=== PATIENT | male | born 1985 | race Caucasian/White ===

== ENCOUNTER 2017-11-19 10:59 | Emergency (ER) | payer BC, SELFPAY ==
--- NOTE | 2017-11-19 11:51 | RAD REPORT ---
EXAM DESCRIPTION: RAD - Hand Left 3 View - 11/19/2017 11:40 am CLINICAL HISTORY: DEFORMITY COMPARISON: No comparisons FINDINGS: Tuft fracture is present involving the fourth finger. No dislocation.
--- NOTE | 2017-11-19 11:55 | EDPHYS ---
Physician Documentation [facility] Name: Rohit Ramon Age: 32 yrs Sex: Male : 1985 Arrival Date: 11/19/2017 Time: 11:02 Bed 16 Private MD: ED Physician Reggie Tinajero HPI: 11/19 11:19 This 32 yrs old Male presents to ER via Ambulatory with complaints of Finger ps1 Pain. 11:19 The patient or guardian reports deformity, injury, pain. The complaints affect the DIP ps1 of left ring finger. Context: The problem was sustained at work. Onset: The symptoms/episode began/occurred 3 month(s) ago. Associated signs and symptoms: Pertinent positives: pain and numbness. FB sensation on palmar aspect of distal 4th phalanx. Severity of symptoms: At their worst the symptoms were moderate, in the emergency department the symptoms are unchanged. workplace injury. Paitient still has pain and FB sensation. Possible fragments from fracture. . Historical: - Allergies: 11:04 No Known Allergies; la1 - PMHx: 11:04 mood disorder; la1 - Immunization history:: Adult Immunizations up to date. - Social history:: Smoking status: Patient uses tobacco products, smokes one-half pack cigarettes per day. - Ebola Screening: : No symptoms or risks identified at this time. ROS: 11:19 Constitutional: Negative for fever, chills, and weight loss, Eyes: Negative for injury, ps1 pain, redness, and discharge, Cardiovascular: Negative for chest pain, palpitations, and edema, Respiratory: Negative for shortness of breath, cough, wheezing, and pleuritic chest pain, Abdomen/GI: Negative for abdominal pain, nausea, vomiting, diarrhea, and constipation, Skin: Negative for injury, rash, and discoloration. 11:19 MS/extremity: Positive for pain, tingling, of the palmar aspect of distal phalanx of left ring finger. Exam: 11:19 Constitutional: This is a well developed, well nourished patient who is awake, alert, ps1 and in no acute distress. Head/Face: Normocephalic, atraumatic. Eyes: Pupils equal round and reactive to light, extra-ocular motions intact. Lids and lashes normal. Conjunctiva and sclera are non-icteric and not injected. Chest/axilla: Normal chest wall appearance and motion. Nontender with no deformity. No lesions are appreciated. Cardiovascular: Regular rate and rhythm. No gallops, murmurs, or rubs. Normal PMI, no JVD. No pulse deficits. Respiratory: Lungs have equal breath sounds bilaterally, clear to auscultation and percussion. No rales, rhonchi or wheezes noted. No increased work of breathing, no retractions or nasal flaring. Skin: Warm, dry with normal turgor. Normal color with no rashes, no lesions, and no evidence of cellulitis. 11:19 Musculoskeletal/extremity: Extremities: grossly normal except: noted in the palmar aspect of distal phalanx of left ring finger: erythema, pain. Vital Signs: 11:04 BP 132 / 74; Pulse 68; Resp 16; Temp 98.4; Pulse Ox 98% on R/A; Weight 117.93 kg; la1 Height 6 ft. 2 in. (187.96 cm); 11:04 Body Mass Index 33.38 (117.93 kg, 187.96 cm) la1 MDM: 11:16 Patient medically screened. ps1 11:51 Data reviewed: vital signs, nurses notes, radiologic studies, plain films, and as a ps1 result, I will discharge patient. Counseling: I had a detailed discussion with the patient and/or guardian regarding: the historical points, exam findings, and any diagnostic results supporting the discharge/admit diagnosis, the need for outpatient follow up, for definitive care, a hand specialist. Special discussion: Based on the history and exam findings, there is no indication for further emergent testing or inpatient evaluation. ED course: patient has comminuted distal phalanx fracture of left 4th digit with multiple fracture fragments. Referred to hand specialist. . 11/19 11:19 Order name: Hand Left 3 View XRAY; Complete Time: 11:56 ps1 Administered Medications: No medications were administered Disposition: 11/19/17 11:55 Discharged to Home. Impression: comminuted distal phalanx fracture left fourth digit. . - Condition is Stable. - Discharge Instructions: Finger Fracture, [id number]. - Prescriptions for Tramadol 50 mg Oral Tablet - take 1 tablet by ORAL route every 8 hours as needed; 30 tablet. - Medication Reconciliation Form, Thank You Letter, Antibiotic Education, Prescription Opioid Use form. - Follow up: Neto Dawkins MD; When: 1 week; Reason: Further diagnostic work-up, Continuance of care. - Problem is chronic. - Symptoms have worsened. Signatures: Dispatcher [employer] EDRafa Callaway, RN RN la1 Nita Beavers RN RN hb Reggie Tinajero MD MD ps1 Corrections: (The following items were deleted from the chart) 12:30 11:55 11/19/2017 11:55 Discharged to Home. Impression: comminuted distal phalanx hb fracture left fourth digit. . Condition is Stable. Forms are Medication Reconciliation Form, Thank You Letter, Antibiotic Education, Prescription Opioid Use. Follow up: Neto Dawkins; When: 1 week; Reason: Further diagnostic work-up, Continuance of care. Problem is chronic. Symptoms have worsened. ps1
--- NOTE | 2017-11-19 11:55 | ER ---
Nurse's Notes [facility] Name: Rohit Ramon Age: 32 yrs Sex: Male : 1985 Arrival Date: 11/19/2017 Time: 11:02 Bed 16 Private MD: Diagnosis: comminuted distal phalanx fracture left fourth digit. Presentation: 11/19 11:03 Presenting complaint: Patient states: I had a crush injury to my left fourth finger la1 about 10 weeks ago and its still hurting. Pt had Xrays twice since injury. Transition of care: patient was not received from another setting of care. Onset of symptoms was November 19, 2017. Risk Assessment: Do you want to hurt yourself or someone else? Patient reports no desire to harm self or others. Initial Sepsis Screen: Does the patient meet any 2 criteria? No. Patient's initial sepsis screen is negative. Does the patient have a suspected source of infection? No. Patient's initial sepsis screen is negative. Care prior to arrival: None. 11:03 Method Of Arrival: Ambulatory la1 11:03 Acuity: CARMELITA 5 la1 Historical: - Allergies: 11:04 No Known Allergies; la1 - PMHx: 11:04 mood disorder; la1 - Immunization history:: Adult Immunizations up to date. - Social history:: Smoking status: Patient uses tobacco products, smokes one-half pack cigarettes per day. - Ebola Screening: : No symptoms or risks identified at this time. Screenin:20 Abuse screen: Denies threats or abuse. Denies injuries from another. Nutritional aj1 screening: No deficits noted. Tuberculosis screening: No symptoms or risk factors identified. Assessment: 11:20 General: Appears in no apparent distress. uncomfortable, Behavior is calm, cooperative, aj1 appropriate for age. Pain: Complains of pain in dorsal aspect of distal phalanx of left ring finger and palmar aspect of distal phalanx of left ring finger Pain currently is 5 out of 10 on a pain scale. Quality of pain is described as sharp. Neuro: Level of Consciousness is awake, alert, obeys commands. Cardiovascular: Patient's skin is warm and dry. Respiratory: Airway is patent Respiratory effort is even, unlabored, Respiratory pattern is regular, symmetrical. GI: No signs and/or symptoms were reported involving the gastrointestinal system. : No signs and/or symptoms were reported regarding the genitourinary system. EENT: No signs and/or symptoms were reported regarding the EENT system. Musculoskeletal: Reports pain in dorsal aspect of distal phalanx of left ring finger and palmar aspect of distal phalanx of left ring finger Pain upon palpation of left ring finger. Vital Signs: 11:04 BP 132 / 74; Pulse 68; Resp 16; Temp 98.4; Pulse Ox 98% on R/A; Weight 117.93 kg; la1 Height 6 ft. 2 in. (187.96 cm); 11:04 Body Mass Index 33.38 (117.93 kg, 187.96 cm) la1 ED Course: 11:02 Patient arrived in ED. as 11:03 Reggie Tinajero MD is Attending Physician. ps1 11:04 Triage completed. la1 11:04 Arm band placed on left wrist. la1 11:09 Dulce Swan, RN is Primary Nurse. aj1 11:20 Patient has correct armband on for positive identification. Bed in low position. Call aj1 light in reach. Side rails up X 1. 11:20 No provider procedures requiring assistance completed. aj1 11:40 Hand Left 3 View XRAY In Process Unspecified. EDMS 11:53 Neto Dawkins MD is Referral Physician. ps1 Administered Medications: No medications were administered Outcome: 11:55 Discharge ordered by . ps1 12:30 Patient left the ED. Signatures: Dispatcher [employer] EDOK Dulce Swan RN RN aj1 Zeenat Kendrick as Rafa Chavis RN RN la1 Nita Beavers RN RN Reggie Tinajero MD MD ps1
[2017-11-19 12:34] VITALS: BP 132/74; TEMP 98.4; O2SAT 98
== END 2017-11-19 12:30 | disposition home or self-care (01) ==
LOC: ER 10:59
DX: S62.635A Displaced fracture of distal phalanx of left ring finger, initial encounter for closed fracture (principal); W23.0XXA Caught, crushed, jammed, or pinched between moving objects, initial encounter; Y93.9 Activity, unspecified; Y92.69 Other specified industrial and construction area as the place of occurrence of the external cause; Y99.0 Civilian activity done for income or pay
CPT/HCPCS: 99282

== ENCOUNTER 2020-02-18 17:39 | Emergency (ER) | payer OTHER, SELFPAY ==
--- NOTE | 2020-02-18 19:33 | EDPHYS ---
Physician Documentation [facility] Name: Rohit Ramon Age: 34 yrs Sex: Male : 1985 Arrival Date: 02/18/2020 Time: 17:41 Bed 16 Private MD: ED Physician Eric Winter HPI: 02/17 19:31 This 34 yrs old Male presents to ER via Ambulatory with complaints of Abscess.pm1 19:31 the patient presents with a swollen area of the right magaña. Description: raised. Onset: pm1 The symptoms/episode began/occurred this morning. Possible cause(s): unknown. Associated signs and symptoms: Pertinent negatives: discharge, drainage, fever. Modifying factors: the symptoms are alleviated by nothing, the symptoms are aggravated by touching. Severity of symptoms: in the emergency department the symptoms are actually worse. Patient noticed a bump on his right magaña this AM when he woke up. Throughout the day he noticed increased redness and swelling around the bump. Patient does not know what caused the bump. Historical: - Allergies: 17:47 No Known Drug Allergies; tw2 - Home Meds: 17:47 None [Active]; tw2 - PMHx: 17:47 mood disorder; tw2 - PSHx: 17:47 None; tw2 - Immunization history:: Adult Immunizations. - Social history:: Smoking status: . ROS: 19:31 Constitutional: Negative for fever, chills, and weight loss, Cardiovascular: Negative pm1 for chest pain, palpitations, and edema, Respiratory: Negative for shortness of breath, cough, wheezing, and pleuritic chest pain, MS/Extremity: Negative for injury and deformity. 19:31 Skin: Positive for abscess, swelling, of the right magaña. Exam: 19:31 Constitutional: This is a well developed, well nourished patient who is awake, alert, pm1 and in no acute distress. Head/Face: Normocephalic, atraumatic. 19:31 Back: No spinal tenderness. No costovertebral tenderness. Full range of motion. 19:31 Cardiovascular: Exam negative for acute changes, Rate: normal, Rhythm: regular, Pulses: no pulse deficits are appreciated. 19:31 Respiratory: Exam negative for acute changes, respiratory distress, shortness of breath. 19:31 Skin: Appearance: normal except for affected area, abscess, not appreciated, of the right magaña, needle aspiration to central vesicle resulted in bleeding. No purulent drainage present. Minimal surrounding cellulitis present. No fluctuance or induration, cellulitis, that is minimal, on the right magaña. 19:31 Neuro: Exam negative for acute changes, Orientation: is normal, Mentation: is normal, Motor: is normal, moves all fours. Vital Signs: 17:44 BP 141 / 92; Pulse 95; Resp 17; Temp 99(TE); Pulse Ox 99% on R/A; Weight 136.08 kg (R); tw2 Height 6 ft. 2 in. (187.96 cm); Pain 6/10; 17:44 Body Mass Index 38.52 (136.08 kg, 187.96 cm) tw2 MDM: 18:45 Patient medically screened. pm1 19:31 Data reviewed: vital signs. Counseling: I had a detailed discussion with the patient pm1 and/or guardian regarding: the historical points, exam findings, and any diagnostic results supporting the discharge/admit diagnosis, the need for outpatient follow up, to return to the emergency department if symptoms worsen or persist or if there are any questions or concerns that arise at home. Administered Medications: 19:35 Drug: Tetanus-Diphtheria Toxoid Adult 0.5 ml {Rehabilitation Therapy Technician: [employer]. Exp: ll2 05/24/2020. Lot #: [id number]. } Route: IM; Site: left deltoid; 19:47 Follow up: Response: Medication administered at discharge. ll2 Disposition: 02/18 06:55 Co-signature as Attending Physician, Eric Winter MD I agree with the assessment and edwin plan of care. Disposition: 02/18/20 19:32 Discharged to Home. Impression: Cellulitis of right lower limb. - Condition is Stable. - Discharge Instructions: Cellulitis, Adult. - Prescriptions for Bactroban 2 % Topical Ointment - Apply to affected area 1 application by TOPICAL route every 12 hours; 30 gram. Bactrim DS 800- 160 mg Oral Tablet - take 1 tablet by ORAL route every 12 hours for 10 days; 20 tablet. - Medication Reconciliation Form, Thank You Letter, Antibiotic Education, Prescription Opioid Use form. - Follow up: Emergency Department; When: As needed; Reason: Worsening of condition. Follow up: Private Physician; When: 2 - 3 days; Reason: Recheck today's complaints, Continuance of care, Re-evaluation by your physician. - Problem is new. - Symptoms have improved. Signatures: Eric Winter MD MD cha Marinas, Patrick, NP SPANISH INTERPRETER/TRANSLATOR pm1 Lara Miller, RN RN tw2 Palmira Powell RN RN ll2 Corrections: (The following items were deleted from the chart) 02/17 19:48 19:32 02/18/2020 19:32 Discharged to Home. Impression: Cellulitis of right lower limb. ll2 Condition is Stable. Forms are Medication Reconciliation Form, Thank You Letter, Antibiotic Education, Prescription Opioid Use. Follow up: Emergency Department; When: As needed; Reason: Worsening of condition. Follow up: Private Physician; When: 2 - 3 days; Reason: Recheck today's complaints, Continuance of care, Re-evaluation by your physician. Problem is new. Symptoms have improved. pm1
--- NOTE | 2020-02-18 19:33 | ER ---
Nurse's Notes [facility] Name: Rohit Ramon Age: 34 yrs Sex: Male : 1985 Arrival Date: 02/18/2020 Time: 17:41 Bed 16 Private MD: Diagnosis: Cellulitis of right lower limb Presentation: 02/17 17:44 Chief complaint: Patient states: today this morning my leg was itching, but all day it tw2 got worse and worse, there is the hot spot that is swelling and red and it feels tight all the way up to my thigh and it feels like my whole leg is on fire. Coronavirus screen: At this time, the client does not indicate any symptoms associated with coronavirus-19. Ebola Screen: Patient denies travel to an Ebola-affected area in the 21 days before illness onset. Initial Sepsis Screen: Does the patient meet any 2 criteria? HR > 90 bpm. No. Patient's initial sepsis screen is negative. Does the patient have a suspected source of infection? Yes: Skin breakdown/wound. Risk Assessment: Do you want to hurt yourself or someone else? Patient reports no desire to harm self or others. Onset of symptoms was February 18, 2020. 17:44 Method Of Arrival: Ambulatory tw2 17:44 Acuity: CARMELITA 3 tw2 Triage Assessment: 17:47 General: Appears in no apparent distress. obese, well groomed, Behavior is calm, tw2 cooperative, appropriate for age. Pain: Complains of pain in right magaña. Historical: - Allergies: 17:47 No Known Drug Allergies; tw2 - Home Meds: 17:47 None [Active]; tw2 - PMHx: 17:47 mood disorder; tw2 - PSHx: 17:47 None; tw2 - Immunization history:: Adult Immunizations. - Social history:: Smoking status: . Screenin:47 Abuse screen: Denies threats or abuse. Nutritional screening: No deficits noted. ll2 Tuberculosis screening: No symptoms or risk factors identified. Fall Risk None identified. Vital Signs: 17:44 BP 141 / 92; Pulse 95; Resp 17; Temp 99(TE); Pulse Ox 99% on R/A; Weight 136.08 kg (R); tw2 Height 6 ft. 2 in. (187.96 cm); Pain 6/10; 17:44 Body Mass Index 38.52 (136.08 kg, 187.96 cm) tw2 ED Course: 17:41 Patient arrived in ED. ag3 17:47 Triage completed. tw2 17:48 Arm band placed on. tw2 18:45 Damian Hernandez NP is PHCP. pm1 18:45 Eric Winter MD is Attending Physician. pm1 19:20 Palmira Powell, RN is Primary Nurse. ll2 19:47 Patient has correct armband on for positive identification. Call light in reach. Side ll2 rails up X 1. 19:47 No provider procedures requiring assistance completed. Patient did not have IV access ll2 during this emergency room visit. Administered Medications: 19:35 Drug: Tetanus-Diphtheria Toxoid Adult 0.5 ml {[employer] Editor: [employer]. Exp: ll2 05/24/2020. Lot #: [id number]. } Route: IM; Site: left deltoid; 19:47 Follow up: Response: Medication administered at discharge. ll2 Outcome: 19:32 Discharge ordered by . pm1 19:47 Discharged to home ambulatory. ll2 19:47 Condition: stable 19:47 Discharge instructions given to patient, Instructed on discharge instructions, follow up and referral plans. medication usage, Demonstrated understanding of instructions, follow-up care, medications, Prescriptions given X 2. 19:48 Patient left the ED. ll2 Signatures: Damian Hernandez, BRAYAN CUTTING MACHINE TENDER pm1 Lara Miller RN RN tw2 Nenita Live ag3 Palmira Powell, PRICILA RN ll2
[2020-02-18] MEDS ORDERED: TETANUS & DIPHTHERIA TOX,ADULT 0.5 ML VIAL ONE (19:51)
[2020-02-18 19:57] VITALS: BP 141/92; TEMP 99; O2SAT 99
== END 2020-02-18 19:48 | disposition home or self-care (01) ==
LOC: ER 17:39
DX: L03.115 Cellulitis of right lower limb (principal); Z23 Encounter for immunization
CPT/HCPCS: 90471; 90714; 99283

== ENCOUNTER 2020-12-31 18:55 | Emergency (ER) | payer SELFPAY ==
[2020-12-31 20:53] LABS: SARS-COV-2 RT PCR NEGATIVE (NEGATIVE)
--- NOTE | 2020-12-31 21:03 | ER ---
Nurse's Notes [facility] Name: Rohit Ramon Age: 35 yrs Sex: Male : 1985 Arrival Date: 12/31/2020 Time: 18:58 Bed 12 Private MD: Diagnosis: Acute upper respiratory infection, unspecified;Otitis media in diseases classified elsewhere, bilateral Presentation: 12/31 19:02 Chief complaint: Patient states: I have had a stuffy nose, headache and ears ringing X ld1 2 days. Coronavirus screen: Client presents with at least one sign or symptom that may indicate coronavirus-19. Standard/surgical mask placed on the client. Ebola Screen: No symptoms or risks identified at this time. Initial Sepsis Screen: Does the patient meet any 2 criteria? No. Patient's initial sepsis screen is negative. Does the patient have a suspected source of infection? No. Patient's initial sepsis screen is negative. Risk Assessment: Do you want to hurt yourself or someone else? Patient reports no desire to harm self or others. Onset of symptoms was December 29, 2020. 19:02 Method Of Arrival: Ambulatory ld1 19:02 Acuity: CARMELITA 4 ld1 Triage Assessment: 19:06 General: Appears in no apparent distress. comfortable, Behavior is calm, cooperative, ld1 appropriate for age. Pain: Denies pain. EENT: Reports nasal congestion. Neuro: Level of Consciousness is awake, alert, obeys commands, Oriented to person, place, time, situation, Appropriate for age. Cardiovascular: Capillary refill < 3 seconds Patient's skin is warm and dry. Respiratory: Airway is patent Respiratory effort is even, unlabored, Respiratory pattern is regular, symmetrical. GI: Abdomen is round non-distended. : No signs and/or symptoms were reported regarding the genitourinary system. Derm: No signs and/or symptoms reported regarding the dermatologic system. Musculoskeletal: No signs and/or symptoms reported regarding the musculoskeletal system. Historical: - Allergies: 19:06 No Known Allergies; ld1 - Home Meds: 19:06 None [Active]; ld1 - PMHx: 19:06 None; ld1 - PSHx: 19:06 Right hand surgery; ld1 - Immunization history:: Adult Immunizations not up to date, Client reports having NOT received the Covid vaccine. - Social history:: Smoking status: Patient denies any tobacco usage or history of. Patient/guardian denies using alcohol. Screenin:40 Abuse screen: Denies threats or abuse. Denies injuries from another. Nutritional ld1 screening: No deficits noted. Tuberculosis screening: No symptoms or risk factors identified. Fall Risk None identified. Assessment: 20:40 Reassessment: See triage assessment. ld1 Vital Signs: 19:02 BP 128 / 78; Pulse 81; Resp 18; Temp 98.2(TE); Pulse Ox 99% on R/A; Weight 129.27 kg; ld1 Height 6 ft. 2 in. (187.96 cm); Pain 0/10; 20:40 BP 131 / 77; Pulse 79; Resp 18; Pulse Ox 99% on R/A; ld1 19:02 Body Mass Index 36.59 (129.27 kg, 187.96 cm) ld1 ED Course: 18:58 Patient arrived in ED. as 19:05 Triage completed. ld1 19:06 Arm band placed on right wrist. ld1 20:29 Eric Meza PA is PHCP. cp 20:29 Justin Flanagan MD is Attending Physician. cp 20:40 Padmini Matson, PRICILA is Primary Nurse. ld1 20:40 Patient has correct armband on for positive identification. Bed in low position. Call ld1 light in reach. Side rails up X2. Pulse ox on. NIBP on. Door closed. Noise minimized. Warm blanket given. 20:40 No provider procedures requiring assistance completed. ld1 21:09 Patient did not have IV access during this emergency room visit. ld1 Administered Medications: No medications were administered Outcome: 21:03 Discharge ordered by . cp 21:09 Discharged to home ambulatory. ld1 21:09 Condition: stable 21:09 Discharge instructions given to patient, Instructed on discharge instructions, follow up and referral plans. medication usage, Demonstrated understanding of instructions, follow-up care, medications. 21:09 Patient left the ED. ld1 Signatures: Zeenat Kendrick Corey, PA PA cp Padmini Matson, RN RN ld1 Corrections: (The following items were deleted from the chart) 19:07 19:06 PMHx: mood disorder; ld1 ld1
--- NOTE | 2020-12-31 21:03 | EDPHYS ---
Physician Documentation [facility] Name: Rohit Ramon Age: 35 yrs Sex: Male : 1985 Arrival Date: 12/31/2020 Time: 18:58 Bed 12 Private MD: ED Physician Justin Flanagan HPI: 12/31 20:45 This 35 yrs old Male presents to ER via Ambulatory with complaints of Flu Symptoms. cp 20:45 The patient or guardian reports cough, that is intermittent. cp 20:45 Onset: The symptoms/episode began/occurred 2 day(s) ago. cp 20:45 Associated signs and symptoms: Pertinent positives: headache, nasal congestion, cp Pertinent negatives: diarrhea, fever, vomiting. Historical: - Allergies: 19:06 No Known Allergies; ld1 - Home Meds: 19:06 None [Active]; ld1 - PMHx: 19:06 None; ld1 - PSHx: 19:06 Right hand surgery; ld1 - Immunization history:: Adult Immunizations not up to date, Client reports having NOT received the Covid vaccine. - Social history:: Smoking status: Patient denies any tobacco usage or history of. Patient/guardian denies using alcohol. ROS: 20:50 Constitutional: Negative for body aches, chills, fever, poor PO intake. cp 20:50 Eyes: Negative for injury, pain, redness, and discharge. cp 20:50 ENT: Positive for sinus congestion, sore throat, Negative for drainage from ear(s), difficulty swallowing, difficulty handling secretions. 20:50 Cardiovascular: Negative for chest pain. 20:50 Respiratory: Positive for cough, "sounds productive", Negative for shortness of breath, wheezing. 20:50 Abdomen/GI: Negative for abdominal pain, nausea, vomiting, and diarrhea. 20:50 Skin: Negative for rash. 20:50 Neuro: Positive for headache, Negative for altered mental status, weakness. 20:50 All other systems are negative. Exam: 20:55 Constitutional: The patient appears in no acute distress, alert, awake, non-toxic, well cp developed, well nourished. 20:55 Head/Face: Normocephalic, atraumatic. cp 20:55 Eyes: Periorbital structures: appear normal, Conjunctiva: normal, no exudate, no injection, Lids and lashes: appear normal, bilaterally. 20:55 ENT: External ear(s): are unremarkable, Ear canal(s): are normal, clear, TM's: bulging, is not appreciated, bilaterally, erythema, that is mild, bilaterally, Nose: is normal, Mouth: Lips: moist, Oral mucosa: moist, Posterior pharynx: Airway: no evidence of obstruction, patent, Tonsils: no enlargement, no exudate, erythema, that is mild, exudate, is not appreciated. 20:55 Neck: ROM/movement: is normal, is supple, without pain, no range of motions limitations, no meningismus, Lymph nodes: no appreciated lymphadenopathy. 20:55 Chest/axilla: Inspection: normal. 20:55 Cardiovascular: Rate: normal, Rhythm: regular. 20:55 Respiratory: the patient does not display signs of respiratory distress, Respirations: normal, no use of accessory muscles, no retractions, labored breathing, is not present, Breath sounds: stridor, is not appreciated, + upper airway congestion. wheezing: is not appreciated. 20:55 Abdomen/GI: Exam negative for discomfort, distension, guarding, Inspection: abdomen appears normal. 20:55 Neuro: Orientation: to person, place \\T\\ time. Mentation: is normal. Vital Signs: 19:02 BP 128 / 78; Pulse 81; Resp 18; Temp 98.2(TE); Pulse Ox 99% on R/A; Weight 129.27 kg; ld1 Height 6 ft. 2 in. (187.96 cm); Pain 0/10; 20:40 BP 131 / 77; Pulse 79; Resp 18; Pulse Ox 99% on R/A; ld1 19:02 Body Mass Index 36.59 (129.27 kg, 187.96 cm) ld1 MDM: 20:38 Patient medically screened. cp 21:00 Differential diagnosis: bronchitis, flu, URI. cp 21:02 Data reviewed: vital signs, nurses notes, lab test result(s), and as a result, I will cp discharge patient. 12/31 19:10 Order name: COVID-19/FLU A+B (Document "Date of Onset" if Symptomatic) iw 12/31 19:10 Order name: Strep iw 12/31 19:11 Order name: COVID-19/FLU A+B; Complete Time: 21:00 EDMS 12/31 19:11 Order name: Group A Streptococcus Rapid Sc; Complete Time: 21:00 EDMS 12/31 19:30 Order name: Throat Culture EDMS Administered Medications: No medications were administered Disposition: 01/01 06:16 Co-signature as Attending Physician, Justin Flanagan MD. 7 Disposition Summary: 12/31/20 21:03 Discharge Ordered Location: Home cp Problem: new cp Symptoms: are unchanged cp Condition: Stable cp Diagnosis - Acute upper respiratory infection, unspecified cp - Otitis media in diseases classified elsewhere, bilateral cp Followup: cp - With: Private Physician - When: 2 - 3 days - Reason: Worsening of condition Discharge Instructions: - Discharge Summary Sheet cp - Otitis Media, Adult cp - Upper Respiratory Infection, Adult cp - Cool Mist Vaporizer cp Forms: - Medication Reconciliation Form cp - Thank You Letter cp - Antibiotic Education cp - Prescription Opioid Use cp Prescriptions: - Tessalon Perles 100 mg Oral Capsule - take 2 capsule by ORAL route every 8 hours As needed; 30 capsule; Refills: 0, cp Product Selection Permitted - Amoxicillin 875 mg Oral Tablet - take 1 tablet by ORAL route every 12 hours for 10 days; 20 tablet; Refills: 0, cp Product Selection Permitted Signatures: Dispatcher [employer] EDMS Eric Meza PA PA cp Justin Flanagan MD MD [facility] Padmini Matson RN RN ld1 Corrections: (The following items were deleted from the chart) 12/31 19:07 19:06 PMHx: mood disorder; ld1 ld1 01/01 03:12 12/31 20:55 ENT: External ear(s): are unremarkable, Nose: is normal, Mouth: Lips: cp moist, Oral mucosa: moist, Posterior pharynx: Airway: no evidence of obstruction, patent, Tonsils: no enlargement, no exudate, erythema, that is mild, exudate, is not appreciated, cp
[2020-12-31 22:21] VITALS: TEMP 98.2; O2SAT 99
[2020-12-31 22:22] VITALS: BP 131/77
== END 2020-12-31 21:09 | disposition home or self-care (01) ==
LOC: ER 18:55
DX: J06.9 Acute upper respiratory infection, unspecified (principal); H66.93 Otitis media, unspecified, bilateral; Z20.822 Contact with and (suspected) exposure to COVID-19
CPT/HCPCS: 0240U; 87070; 87081; 99283